=== PATIENT | female | born 2005 | race Caucasian/White ===

== ENCOUNTER 2024-03-02 01:54 | Emergency (ER) | payer OTHER ==
[~2024-03-02] VITALS: Ht 167.6 cm; Wt 72.7 kg
[2024-03-02 01:59] VITALS: TEMP 97.8
[2024-03-02] MEDS ORDERED: NS 1,000 ML IV ONE (02:45)
[2024-03-02] MEDS ORDERED: Ondansetron 4 MG/2 ML VIAL IV ONE (02:45)
[2024-03-02] MEDS ORDERED: Ketorolac 30 MG/ML VIAL IV ONE (02:45)
[2024-03-02 03:03] LABS: BASO % 0.5 % (0.0-2.0); EOS # 0.4 K/mm3 (0.0-0.7); EOS % 4.4 % (0.0-4.0); GRAN # 4.6 K/mm3 (1.4-6.5); GRAN % 54.4 % (42.2-75.2); HEMATOCRIT 41.3 % (35.0-45.0); HEMOGLOBIN 13.7 g/dl (12.0-15.0); LYMPH # 2.9 K/mm3 (1.2-3.4); LYMPH % 34.2 % (20.0-51.0); MEAN CELL VOLUME 92 fl (80.0-95.0); MEAN CORPUSCULAR HEMOGLOBIN 30 pg (26-32); MEAN CORPUSCULAR HGB CONC 33 g/dl (33.0-37.0); MEAN PLATELET VOLUME 10.4 fl (7.4-10.4); MONO # 0.5 K/mm3 (0.1-0.6); MONO % 5.8 % (1.7-9.3); PLATELET COUNT 285 K/mm3 (130-400); RED BLOOD COUNT 4.51 M/mm3 (4.10-5.30); REDCELL DISTRIBUTION WIDTH-CV 11.7 % (11.5-14.5)
[2024-03-02 03:15] LABS: ALBUMIN 3.8 g/dL (3.5-5.0); BILIRUBIN,TOTAL 0.2 mg/dL (0.2-1.2); C-REACTIVE PROTEIN 0.39 mg/dL (0.00-0.50); CALCIUM 9.2 mg/dL (8.4-10.2); CREATININE, serum 0.84 mg/dL (0.57-1.11); POTASSIUM 3.5 mEq/L (3.5-4.5); TOTAL PROTEIN 7.1 g/dl (6.2-8.1)
[2024-03-02 03:24] LABS: COLLECTION METHOD CLEAN CATCH
[2024-03-02 03:31] LABS: PH 5.5 (5.0-8.5); URINE APPEARANCE CLEAR (CLEAR/HAZY); URINE BLOOD NEGATIVE (NEGATIVE); URINE COLOR YELLOW (YELLOW); URINE GLUCOSE NEGATIVE (NEGATIVE); URINE KETONE TRACE (NEGATIVE); URINE NITRATE NEGATIVE (NEGATIVE); URINE PROTEIN(semi-quant) NEGATIVE (NEGATIVE)
[2024-03-02] MEDS ORDERED: CEFTIN 250250 MG/TAB PO (03:40)
[2024-03-02] MEDS ORDERED: Cefuroxime 250 MG TAB PO ONE (03:45)
[2024-03-02 04:10] VITALS: BP 112/81; PULSE 80
== END 2024-03-02 04:10 | disposition home or self-care (01) ==
LOC: COL.ER 01:54
PROVIDERS: Nurse Practitioner
DX: R10.31 Right lower quadrant pain (principal); R30.0 Dysuria
CPT/HCPCS: J1885; J2405; J7030